=== PATIENT | male | born 1995 | race African-American/Black ===

== ENCOUNTER 2017-03-26 05:07 | Observation (INO) | payer SELFPAY ==
[~2017-03-26] VITALS: Wt 90.9 kg
[2017-03-26] VITALS (236 sets, daily range): BP systolic 142–164; BP diastolic 67–92; PULSE 69–75; TEMP 98–98.9; O2SAT 39–100
[2017-03-26] MEDS ORDERED: LEXAPRO20 MG PO (05:10)
[2017-03-26] MEDS ORDERED: 00186-0370-20 IH (05:10)
[2017-03-26 05:32] LABS: BASO % 0.6 % (0.0-2.0); EOS # 0.1 (0.0-0.7); EOS % 1.1 % (0-4.0); GRAN # 4.9 (1.4-6.5); GRAN % 68.4 % (42.2-75.2); HEMATOCRIT 44.5 % (36.0-47.0); HEMOGLOBIN 14.4 g/dl (12.5-16.1); LYMPH # 1.6 (1.2-3.4); LYMPH % 21.8 % (20.0-51.0); MEAN CELL VOLUME 83 fl (80.0-95.0); MEAN CORPUSCULAR HEMOGLOBIN 27 pg (26.0-32.0); MEAN CORPUSCULAR HGB CONC 32 g/dl (33.0-37.0); MEAN PLATELET VOLUME 10.3 fl (7.4-10.4); MONO # 0.6 (0.1-0.6); MONO % 7.8 % (1.7-9.3); PLATELET COUNT 254 K/mm3 (130-400); RED BLOOD COUNT 5.38 M/mm3 (4.20-5.60); WHITE BLOOD COUNT 7.2 K/mm3 (4.8-10.8)
[2017-03-26 05:42] LABS: ACETAMINOPHEN < 10 ug/mL (10-30); ADJUSTED CALCIUM 9.1 mg/dL (8.4-10.2); ALANINE AMINOTRANSFERASE 26 U/L (21-72); ALBUMIN 4.9 gm/dL (3.5-5.0); ALCOHOL(ethanol),MEDICAL < 10 mg/dL; ALKALINE PHOSPHATASE 121 U/L (50-136); ANION GAP 12 mmol/L (7-16); BLOOD UREA NITROGEN 10 mg/dL (9-20); CALCIUM 9.8 mg/dL (8.4-10.2); CARBON DIOXIDE 23 mmol/L (22-30); CHLORIDE 101 mmol/L (98-107); CREATININE, serum 1.02 mg/dL (0.66-1.25); GLUCOSE 118 mg/dL (74-106); POTASSIUM 3.5 mmol/L (3.4-5.0); SALICYLATE < 1.0 mg/dL; SODIUM 136 mmol/L (137-145); TOTAL PROTEIN 8.1 gm/dL (6.4-8.2)
[2017-03-26 05:55] LABS: AMPHETAMINE URINE POSITIVE; BARBITURATES URINE NEGATIVE; BENZODIAZEPINES URINE NEGATIVE; BUPRENORPHINE URINE NEGATIVE; METHADONE URINE NEGATIVE; OPIATES URINE NEGATIVE; OXYCODONE URINE NEGATIVE; PHENCYCLIDINE URINE NEGATIVE; PROPOXYPHENE URINE NEGATIVE; THC CANNABINOIDS URINE NEGATIVE; TRICYCLIC ANTIDEPRESS URINE NEGATIVE
[2017-03-26 06:45] LABS: MAGNESIUM 1.8 mg/dL (1.6-2.3)
[2017-03-27] VITALS: BP 125/106; PULSE 68; TEMP 98.8
[2017-03-27 04:00] VITALS: BP 132/76; PULSE 75; TEMP 98.8
[2017-03-27 05:44] LABS: CALCIUM 9.3 mg/dL (8.4-10.2); CREATININE, serum 0.96 mg/dL (0.66-1.25); MAGNESIUM 1.8 mg/dL (1.6-2.3)
[2017-03-27 05:54] VITALS: BP 123/65
[2017-03-27 07:33] VITALS: BP 106/56; PULSE 67; TEMP 97.6
[2017-03-27 12:45] VITALS: BP 106/56; PULSE 61; TEMP 98
== END 2017-03-27 13:00 | disposition home or self-care (01) ==
LOC: COL.ER 05:07 → ICU 09:54
PROVIDERS: Emergency Medicine; Physician Assistant
DX: T43.224A Poisoning by selective serotonin reuptake inhibitors, undetermined, initial encounter (principal); T43.63 Poisoning by, adverse effect of and underdosing of methylphenidate; F32.9 Major depressive disorder, single episode, unspecified; F41.9 Anxiety disorder, unspecified; I10 Essential (primary) hypertension; J45.909 Unspecified asthma, uncomplicated; F17.210 Nicotine dependence, cigarettes, uncomplicated
CPT/HCPCS: G0378; J7030